=== PATIENT | female | born 1985 | race Caucasian/White ===

== ENCOUNTER → 2019-04-21 | Outpatient (CLI) | payer OTHER, MEDICAID ==
[~2019-04-21] MED LIST: CLON0.3T PO; HYDR12CA PO; MELA10CA2 PO; METH10CO PO; NICO21DI37 TD; NICO4GUM41; SERT-138 PO
[2019-04-21 15:47] LABS: HEMATOCRIT 35.7 % (36.0-47.0); HEMOGLOBIN 11.5 g/dl (12.0-15.5); MEAN CORPUSCULAR HEMOGLOBIN 28.9 pg (27.0-33.0); MEAN CORPUSCULAR HGB CONC 32.2 g/dl (32.0-36.5); MEAN CORPUSCULAR VOLUME 89.7 fl (80.0-96.0); PLATELET COUNT, AUTOMATED 144 10^3/uL (150-450); RED BLOOD COUNT 3.98 10^6/uL (4.00-5.40); WHITE BLOOD COUNT 4.1 10^3/uL (4.0-10.0)
[2019-04-21 16:21] LABS: ALT/SGPT 119 U/L (12-78); BILIRUBIN,TOTAL 0.3 MG/DL (0.2-1.0); BLOOD UREA NITROGEN 12 MG/DL (7-18); CALCIUM LEVEL 8.7 MG/DL (8.5-10.1); CARBON DIOXIDE LEVEL 32 MEQ/L (21-32); CHLORIDE LEVEL 106 MEQ/L (98-107); CREATININE FOR GFR 0.61 MG/DL (0.55-1.30); GLOMERULAR FILTRATION RATE > 60.0 (>60); GLUCOSE, FASTING 92 MG/DL (70-100); POTASSIUM SERUM 4.5 MEQ/L (3.5-5.1); SODIUM LEVEL 143 MEQ/L (136-145); TOTAL PROTEIN 6.3 GM/DL (6.4-8.2)
[2019-04-21 17:03] LABS: CHLAMYDIA DNA AMPLIFICATION NEGATIVE (NEGATIVE); GC DNA AMPLIFICATION NEGATIVE (NEGATIVE)
[2019-04-21 20:13] LABS: HCG, SERUM QUALITATIVE NEGATIVE (NEGATIVE)
--- NOTE | 2019-04-21 20:38 | ECGEPIP ---
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 No prior ECG available for comparison. Electronically Signed on 04-21-2019 20:38:09 EDT by Shaw Johnson
[2019-04-23 11:36] LABS: HEPATITIS B SURFACE ANTIGEN NEGATIVE (NEGATIVE)
[2019-04-23 12:05] LABS: HIV 1&2 SCREEN CENTAUR NEGATIVE (NEGATIVE)
[2019-04-23 12:40] LABS: HEPATITIS C VIRUS ABY INDEX > 11.0 INDEX (<0.8)
== END ==
LOC: M LAB 14:49 → EDBD 14:49
PROVIDERS: ATTEND Family Medicine
DX: F11.20 Opioid dependence, uncomplicated (principal)

== ENCOUNTER → 2019-04-28 | Outpatient (CLI) | payer OTHER ==
--- NOTE | 2019-04-28 18:15 | ECGEPIP ---
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 Could not rule out prior septal injury No significant change from 04/21/19 Electronically Signed on 04-28-2019 18:15:28 EDT by Errol Bobby
== END ==
LOC: M EKG 08:51
PROVIDERS: ATTEND Family Medicine
DX: F11.20 Opioid dependence, uncomplicated (principal)

== ENCOUNTER → 2019-04-30 | Outpatient (CLI) | payer OTHER ==
[2019-04-30 12:23] LABS: APPEARANCE, URINE CLEAR (CLEAR); BACTERIA, URINE AUTO NEGATIVE (NEGATIVE); BILIRUBIN, URINE AUTO NEGATIVE (NEGATIVE); BLOOD, URINE BLOOD NEGATIVE (NEGATIVE); COLOR, URINE YELLOW (YELLOW); GLUCOSE, URINE (UA) AUTO NEGATIVE (NEGATIVE); KETONE, URINE AUTO NEGATIVE (NEGATIVE); LEUKOCYTE ESTERASE, URINE AUTO TRACE (NEGATIVE); NITRITE, URINE AUTO NEGATIVE (NEGATIVE); PROTEIN, URINE AUTO NEGATIVE (NEGATIVE); RBC, URINE AUTO 1 /HPF (0-3); SPECIFIC GRAVITY URINE AUTO 1.017 (1.002-1.035); SQUAMOUS EPITHELIAL CELL UR AU 0 /HPF (0-6); UROBILINOGEN, URINE AUTO 0.2 mg/dL (0.0-2.0); WBC, URINE AUTO 0 /HPF (0-3)
[2019-04-30 12:49] LABS: BASO % 0.5 % (0.0-1.0); EOS # 0.2 10^3/uL (0.0-0.5); EOS % 5.7 % (0.0-3.0); HEMATOCRIT 38.5 % (36.0-47.0); HEMOGLOBIN 12.7 g/dl (12.0-15.5); LYMPH # 1.5 10^3/uL (1.5-5.0); LYMPH % 40.4 % (24.0-44.0); MEAN CORPUSCULAR HEMOGLOBIN 29.7 pg (27.0-33.0); MEAN CORPUSCULAR VOLUME 90.2 fl (80.0-96.0); MONO # 0.5 10^3/uL (0.0-0.8); MONO % 13.4 % (0.0-5.0); NEUTROPHILS # 1.5 10^3/uL (1.5-8.5); NEUTROPHILS % 39.7 % (36.0-66.0); PLATELET COUNT, AUTOMATED 128 10^3/uL (150-450); RED BLOOD COUNT 4.27 10^6/uL (4.00-5.40); WHITE BLOOD COUNT 3.7 10^3/uL (4.0-10.0)
[2019-04-30 13:43] LABS: ALBUMIN 3.4 GM/DL (3.2-5.2); ALT/SGPT 160 U/L (12-78); BILIRUBIN,TOTAL 0.3 MG/DL (0.2-1.0); BLOOD UREA NITROGEN 18 MG/DL (7-18); CALCIUM LEVEL 9.1 MG/DL (8.5-10.1); CARBON DIOXIDE LEVEL 29 MEQ/L (21-32); CHLORIDE LEVEL 103 MEQ/L (98-107); CREATININE FOR GFR 0.65 MG/DL (0.55-1.30); GLOMERULAR FILTRATION RATE > 60.0 (>60); GLUCOSE, FASTING 106 MG/DL (70-100); HEPATITIS B SURFACE ANTIBODY POSITIVE (POSITIVE); HEPATITIS B SURFACE ANTIGEN NEGATIVE (NEGATIVE); POTASSIUM SERUM 4.3 MEQ/L (3.5-5.1); SODIUM LEVEL 140 MEQ/L (136-145); TOTAL PROTEIN 6.6 GM/DL (6.4-8.2)
[2019-05-05 15:34] LABS: HEPATITIS A IgG TOTAL Negative (Negative); HEPATITIS C QUANTITATION 166090 IU/mL (.); HEPATITIS C VIRUS GENOTYPE 1a (.)
== END ==
LOC: M LAB 11:13
PROVIDERS: ATTEND Physician Assistant Medical
DX: Z02.2 Encounter for examination for admission to residential institution (principal); B18.2 Chronic viral hepatitis C; B16.9 Acute hepatitis B without delta-agent and without hepatic coma; B15.9 Hepatitis A without hepatic coma

== ENCOUNTER → 2019-05-31 | Outpatient (CLI) | payer OTHER ==
[2019-06-02 14:07] LABS: HEPATITIS C QUANTITATION HCV Not Detected IU/mL (.)
== END ==
LOC: M LAB 10:16
PROVIDERS: ATTEND Nurse Practitioner Adult Health
DX: B18.2 Chronic viral hepatitis C (principal)

== ENCOUNTER 2019-07-10 14:39 | Emergency (ER) | payer OTHER ==
[~2019-07-10] VITALS: Ht 170.2 cm; Wt 107.4 kg
[2019-07-10] MEDS ORDERED: HYDR12CA PO (15:07)
[2019-07-10] MEDS ORDERED: METH10CO PO ×2 (15:07)
[2019-07-10] MEDS ORDERED: CLON0.3T PO (15:07)
[2019-07-10] MEDS ORDERED: NICO21DI37 TD (15:07)
[2019-07-10] MEDS ORDERED: NICO4GUM41 (15:07)
[2019-07-10] MEDS ORDERED: MELA10CA2 PO (15:07)
[2019-07-10] MEDS ORDERED: SERT-138 PO (15:07)
[2019-07-10 15:42] LABS: APPEARANCE, URINE HAZY (CLEAR); BACTERIA, URINE AUTO NEGATIVE (NEGATIVE); BILIRUBIN, URINE AUTO NEGATIVE (NEGATIVE); BLOOD, URINE BLOOD NEGATIVE (NEGATIVE); COLOR, URINE YELLOW (YELLOW); GLUCOSE, URINE (UA) AUTO NEGATIVE (NEGATIVE); KETONE, URINE AUTO TRACE mg/dL (NEGATIVE); LEUKOCYTE ESTERASE, URINE AUTO 1+ (NEGATIVE); MUCUS, URINE SMALL (NEGATIVE); NITRITE, URINE AUTO NEGATIVE (NEGATIVE); PROTEIN, URINE AUTO NEGATIVE (NEGATIVE); RBC, URINE AUTO 2 /HPF (0-3); SPECIFIC GRAVITY URINE AUTO 1.026 (1.002-1.035); SQUAMOUS EPITHELIAL CELL UR AU 2 /HPF (0-6); UROBILINOGEN, URINE AUTO 0.2 mg/dL (0.0-2.0); WBC, URINE AUTO 7 /HPF (0-3)
[2019-07-10 15:46] LABS: BASO % 0.9 % (0.0-1.0); EOS # 0.2 10^3/uL (0.0-0.5); EOS % 5.3 % (0.0-3.0); HEMATOCRIT 37.5 % (36.0-47.0); HEMOGLOBIN 12.3 g/dl (12.0-15.5); LYMPH % 43.7 % (24.0-44.0); MEAN CORPUSCULAR HEMOGLOBIN 30.6 pg (27.0-33.0); MEAN CORPUSCULAR HGB CONC 32.8 g/dl (32.0-36.5); MEAN CORPUSCULAR VOLUME 93.3 fl (80.0-96.0); MONO # 0.3 10^3/uL (0.0-0.8); MONO % 6.2 % (0.0-5.0); NEUTROPHILS % 43.5 % (36.0-66.0); PLATELET COUNT, AUTOMATED 112 10^3/uL (150-450); RED BLOOD COUNT 4.02 10^6/uL (4.00-5.40); WHITE BLOOD COUNT 4.5 10^3/uL (4.0-10.0)
[2019-07-10 16:16] LABS: ALBUMIN 3.8 GM/DL (3.2-5.2); ALT/SGPT 57 U/L (12-78); BILIRUBIN,DIRECT < 0.1 MG/DL (0.0-0.2); BILIRUBIN,TOTAL 0.2 MG/DL (0.2-1.0); BLOOD UREA NITROGEN 26 MG/DL (7-18); CALCIUM LEVEL 8.9 MG/DL (8.5-10.1); CARBON DIOXIDE LEVEL 33 MEQ/L (21-32); CHLORIDE LEVEL 103 MEQ/L (98-107); CREATININE FOR GFR 1.43 MG/DL (0.55-1.30); GLOMERULAR FILTRATION RATE 44.7 (>60); GLUCOSE, FASTING 81 MG/DL (70-100); NT-PRO BNP 27 PG/ML (<125); POTASSIUM SERUM 4.1 MEQ/L (3.5-5.1); SODIUM LEVEL 141 MEQ/L (136-145); TOTAL PROTEIN 8.3 GM/DL (6.4-8.2)
[2019-07-10 19:06] VITALS: BP 148/88
--- NOTE | 2019-07-10 19:42 | REPVR ---
PROCEDURE INFORMATION: Exam: US Retroperitoneal Limited, Kidneys Exam date and time: 07/10/2019 6:55 PM Age: 33 years old Clinical history: Abnormal findings; Abnormal lab test; Abnormal kidney function lab tests; Additional info: Elevated CR, peripheral edema TECHNIQUE: Imaging protocol: Real-time ultrasound of the retroperitoneum with image documentation. Examination was focused on the kidneys. COMPARISON: No relevant prior studies available. FINDINGS: Right kidney: The right kidney measures 11.4 cm in length and there is no evidence of hydronephrosis. Left kidney: The left kidney measures 11.3 cm in length and there is no evidence of hydronephrosis. Bladder: Normal appearing urinary bladder. IMPRESSION: No evidence of hydronephrosis. Electronically signed by: Clyde Schneider On 07/10/2019 19:42:20 PM
--- NOTE | 2019-07-11 07:52 | REP ---
REASON: Edema. COMPARISON: No priors. FINDINGS: The superior mediastinal structures are midline. The cardiac silhouette is unremarkable in size, shape, and position. The diaphragmatic surfaces of the lungs are regular, and the costophrenic angles are clear. The pulmonary day are clear. The imaged osseous structures are intact. IMPRESSION: There is no acute cardiopulmonary disease. Electronically Signed by Bernardino Ann DO 07/11/2019 09:23 A
--- NOTE | 2019-07-11 07:58 | REP ---
DEEP VENOUS ULTRASONOGRAPHY BILATERAL THIGHS, RULE OUT DVT: REASON: Pain and swelling. TECHNIQUE: Multiple ultrasonographic images of the deep venous structures of the thigh were obtained from the common femoral vein to the popliteal vein along with Doppler interrogation and color flow Doppler images. FINDINGS: There is no abnormal echogenic material seen within any of the visualized deep venous structures that would suggest acute thrombosis. Coaptation is unremarkable throughout. Doppler interrogation shows an expected response to respiratory variability and augmentation. The color flow images show what appears to be a normal vascular pattern throughout. IMPRESSION: There is no ultrasonographic evidence of deep venous thrombosis involving any of the visualized deep venous structures of the bilateral thighs, as described above. Electronically Signed by Bernardino Ann DO 07/11/2019 09:24 A
== END 2019-07-10 19:07 | disposition home or self-care (01) ==
LOC: M ED 14:39
DX: R60.9 Edema, unspecified (principal); R79.89 Other specified abnormal findings of blood chemistry; E86.0 Dehydration; Z86.19 Personal history of other infectious and parasitic diseases; Z79.899 Other long term (current) drug therapy

== ENCOUNTER → 2019-07-12 | Outpatient (CLI) | payer OTHER ==
[2019-07-12 10:43] LABS: CALCIUM LEVEL 9.2 MG/DL (8.5-10.1); CREATININE FOR GFR 1.25 MG/DL (0.55-1.30); GLOMERULAR FILTRATION RATE 52.2 (>60)
== END ==
LOC: M LAB 09:34
PROVIDERS: ATTEND Physician Assistant Medical
DX: N17.9 Acute kidney failure, unspecified (principal)

== ENCOUNTER → 2019-07-23 | Outpatient (REF) | payer OTHER | LOC: M WHC 14:04 | PROVIDERS: ATTEND Obstetrics & Gynecology | DX: Z12.4 Encounter for screening for malignant neoplasm of cervix (principal) ==

== ENCOUNTER → 2019-07-26 | Outpatient (CLI) | payer OTHER, SELFPAY ==
[2019-07-26 10:42] LABS: HEMATOCRIT 37.1 % (36.0-47.0); HEMOGLOBIN 12.3 g/dl (12.0-15.5); MEAN CORPUSCULAR HEMOGLOBIN 30.8 pg (27.0-33.0); MEAN CORPUSCULAR HGB CONC 33.2 g/dl (32.0-36.5); MEAN CORPUSCULAR VOLUME 92.8 fl (80.0-96.0); PLATELET COUNT, AUTOMATED 115 10^3/uL (150-450); WHITE BLOOD COUNT 4.2 10^3/uL (4.0-10.0)
== END ==
LOC: M LAB 09:46
PROVIDERS: ATTEND Obstetrics & Gynecology
DX: N93.9 Abnormal uterine and vaginal bleeding, unspecified (principal)

== ENCOUNTER → 2019-07-26 | Outpatient (CLI) | payer MEDICAID, OTHER, SELFPAY ==
[2019-07-26 10:43] LABS: EOS # 0.2 10^3/uL (0.0-0.5); EOS % 5.3 % (0.0-3.0); HEMATOCRIT 38.3 % (36.0-47.0); HEMOGLOBIN 12.4 g/dl (12.0-15.5); LYMPH # 1.7 10^3/uL (1.5-5.0); LYMPH % 42.5 % (24.0-44.0); MEAN CORPUSCULAR HEMOGLOBIN 30.5 pg (27.0-33.0); MEAN CORPUSCULAR HGB CONC 32.4 g/dl (32.0-36.5); MEAN CORPUSCULAR VOLUME 94.3 fl (80.0-96.0); MONO # 0.3 10^3/uL (0.0-0.8); NEUTROPHILS # 1.8 10^3/uL (1.5-8.5); NEUTROPHILS % 43.9 % (36.0-66.0); PLATELET COUNT, AUTOMATED 123 10^3/uL (150-450); RED BLOOD COUNT 4.06 10^6/uL (4.00-5.40)
[2019-07-26 11:46] LABS: CALCIUM LEVEL 8.6 MG/DL (8.5-10.1); CREATININE FOR GFR 1.31 MG/DL (0.55-1.30); FREE T4 0.24 NG/DL (0.76-1.46); GLOMERULAR FILTRATION RATE 49.5 (>60); POTASSIUM SERUM 4.1 MEQ/L (3.5-5.1); THYROID STIMULATING HORMONE 87.6 uIU/ML (0.358-3.740)
== END ==
LOC: M LAB 09:47
PROVIDERS: ATTEND Physician Assistant Medical
DX: R53.83 Other fatigue (principal); I10 Essential (primary) hypertension

== ENCOUNTER → 2019-08-05 | Outpatient (CLI) | payer SELFPAY ==
--- NOTE | 2019-08-05 15:24 | REP ---
PELVIC ULTRASOUND: Real-time sonographic evaluation of the pelvis is performed utilizing transabdominal and endovaginal technique. The bladder measures 7.8 x 8.1 x 4.8 cm. Uterus measures 7.4 x 3.3 x 4.3 cm. Endometrial thickness is 5 mm. Right ovary measures 2.3 x 1.4 x 2.0 cm and left ovary 2.2 x 1.6 x 1.2 cm. There is a dominant follicle of the left ovary 1.4 cm in diameter. There is no other evidence of adnexal mass or free fluid. There is no evidence of ovarian torsion with duplex Doppler evaluation. IMPRESSION: Dominant follicle left ovary 1.4 cm in diameter. No other evidence of adnexal mass. No free fluid or torsion. Electronically Signed by Jorge Luis Alejo MD 08/06/2019 04:35 P
== END ==
LOC: M RAD 13:43
PROVIDERS: ATTEND Obstetrics & Gynecology
DX: N80.9 Endometriosis, unspecified (principal); N83.02 Follicular cyst of left ovary

== ENCOUNTER → 2019-08-30 | Outpatient (REF) | payer MEDICAID | LOC: M SFHCWAGY 13:10 | PROVIDERS: ATTEND Obstetrics & Gynecology | DX: N93.9 Abnormal uterine and vaginal bleeding, unspecified (principal) ==

== ENCOUNTER → 2019-08-31 | Outpatient (CLI) | payer MEDICAID ==
[~2019-08-31] MED LIST changes: +LEVO175T2 PO; +[UNRECOGNIZED DRUG - CODE] PO
--- NOTE | 2019-08-31 21:21 | ECGEPIP ---
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
== END ==
LOC: M EKG 10:20
PROVIDERS: ATTEND Family Medicine
DX: R00.1 Bradycardia, unspecified (principal); F11.20 Opioid dependence, uncomplicated

== ENCOUNTER 2019-09-10 11:33 | Emergency (ER) | payer MEDICAID, OTHER ==
[~2019-09-10] VITALS: Ht 170.2 cm; Wt 106.8 kg
[2019-09-10 11:33] VITALS: BP 126/72
[~2019-09-10 11:33] MED LIST changes: -LEVO175T2 PO; -[UNRECOGNIZED DRUG - CODE] PO
[2019-09-10] MEDS ORDERED: LEVO175T2 PO (11:42)
[2019-09-10] MEDS ORDERED: [UNRECOGNIZED DRUG - CODE] PO (11:42)
[2019-09-10] MEDS ORDERED: ACETAMINOPHEN 500 MG TAB PO ONE (12:00)
[2019-09-10] MEDS ORDERED: IBUPROFEN 600 MG TAB PO ONE (12:00)
--- NOTE | 2019-09-10 12:36 | REP ---
Lumbar spine five views: There are no comparisons. The vertebral body heights, interspacing alignment are normal. The pedicles and facets are unremarkable. There is no spondylolysis or spondylolisthesis. The sacroiliac articulations are unremarkable. Mineralization is normal. Impression: Negative lumbar spine. Electronically Signed by Jorge Luis Kern MD 09/10/2019 12:27 P
--- NOTE | 2019-09-10 12:38 | REP ---
Sacrum and coccyx three views: No sacral fracture is identified. The sacral ala and foramen are unremarkable. Mineralization is normal. The sacroiliac articulations are unremarkable. Impression: Negative sacrum and coccyx. Electronically Signed by Jorge Luis Kern MD 09/10/2019 12:28 P
== END 2019-09-10 12:50 | disposition home or self-care (01) ==
LOC: M ED 11:33
DX: S30.0XXA Contusion of lower back and pelvis, initial encounter (principal); W00.9XXA Unspecified fall due to ice and snow, initial encounter; Y92.099 Unspecified place in other non-institutional residence as the place of occurrence of the external cause; Y93.9 Activity, unspecified; Y99.9 Unspecified external cause status; E03.9 Hypothyroidism, unspecified; Z79.899 Other long term (current) drug therapy

== ENCOUNTER → 2019-09-14 | Outpatient (CLI) | payer MEDICAID ==
[~2019-09-14] MED LIST changes: +LEVO175T2 PO; +[UNRECOGNIZED DRUG - CODE] PO
[2019-09-14 15:16] LABS: FREE T4 1.16 NG/DL (0.76-1.46); THYROID STIMULATING HORMONE 0.242 uIU/ML (0.358-3.740)
== END ==
LOC: M LAB 13:41
PROVIDERS: ATTEND Internal Medicine Endocrinology, Diabetes & Metabolism
DX: E03.9 Hypothyroidism, unspecified (principal)

== ENCOUNTER → 2019-09-21 | Outpatient (CLI) | payer MEDICAID ==
--- NOTE | 2019-09-21 12:47 | REPMRS ---
Patient History The patient states she had a clinical breast exam in February 2019 Family history of breast cancer at age 42 in mother, breast cancer in maternal grandmother. Taking unspecified hormones for 2 months. Digital Mammo Diagnostic Bilateral: September 21, 2019 - Exam #: [id number] Bilateral CC and MLO view(s) were taken. Technologist: Stormy Oconnor Technologist FINDINGS: There are scattered fibroglandular densities. Metallic nipple rings are noted bilaterally. These apparently could not be removed. There is no evidence of dominant mass, architectural distortion, or grouped microcalcification typical of malignancy. 3-D tomosynthesis shows no additional findings. Assessment: BI-RADS/ACR category 2 mammogram. Benign Findings. Recommendation Breast MRI of both breasts in 6 months. Routine screening mammogram of both breasts in 1 year (for women over age 40). This patient's Lifetime Breast Cancer RIsk is estimated at 30.9 %. Annual screening Breast MRI scanniing is recommended for patient's whose lifetime risk assessment is over 20%. This mammogram was interpreted with the aid of an FDA-approved computer-aided dectection system. Electronically Signed By: Ab Gallegos MD 09/21/19 [id number]
== END ==
LOC: M RAD 12:06
PROVIDERS: ATTEND Nurse Practitioner Family
DX: N64.4 Mastodynia (principal); N64.52 Nipple discharge; Z80.3 Family history of malignant neoplasm of breast
CPT/HCPCS: 77066; G0279

== ENCOUNTER → 2019-10-04 | Outpatient (CLI) | payer MEDICAID ==
[2019-10-06 14:12] LABS: HEPATITIS C QUANTITATION HCV Not Detected IU/mL (.)
== END ==
LOC: M LAB 12:27
PROVIDERS: ATTEND Nurse Practitioner Adult Health
DX: B18.2 Chronic viral hepatitis C (principal)

== ENCOUNTER → 2019-10-19 | Outpatient (CLI) | payer MEDICAID ==
[~2019-10-19] MED LIST changes: +EQL50TAB2 PO; +WELL200T PO
== END ==
LOC: M LAB 12:11
PROVIDERS: ATTEND Family Medicine
DX: F11.10 Opioid abuse, uncomplicated (principal)

== ENCOUNTER → 2019-10-20 | Outpatient (CLI) | payer MEDICAID | LOC: M LAB 08:53 | PROVIDERS: ATTEND Family Medicine | DX: F11.10 Opioid abuse, uncomplicated (principal) ==

== ENCOUNTER 2019-10-27 08:51 | Inpatient (IN) | payer MEDICAID ==
[~2019-10-27] VITALS: Ht 170.2 cm; Wt 111.6 kg
[2019-10-27] VITALS (7 sets, daily range): BP systolic 136–153; BP diastolic 84–89
[~2019-10-27 08:51] MED LIST changes: +LR 1,000 ML IV SCH; +ceFAZolin SOD 2 GM in IV 1 EA IV ONE
[2019-10-27 09:25] LABS: HEMATOCRIT 39.2 % (36.0-47.0); MEAN CORPUSCULAR HEMOGLOBIN 28.9 pg (27.0-33.0); MEAN CORPUSCULAR HGB CONC 33.2 g/dl (32.0-36.5); MEAN CORPUSCULAR VOLUME 87.1 fl (80.0-96.0); PLATELET COUNT, AUTOMATED 120 10^3/uL (150-450); WHITE BLOOD COUNT 3.9 10^3/uL (4.0-10.0)
[2019-10-27] MEDS ORDERED: LIOT25TA8 PO (09:26)
[2019-10-27] MEDS ORDERED: VITA80003 PO (09:26)
[2019-10-27 09:57] LABS: HCG, SERUM QUALITATIVE NEGATIVE (NEGATIVE)
[2019-10-27] MEDS ORDERED: BUPIVACAINE HCL 0.25% 30ML VIAL As Ordered ONE (10:49)
[2019-10-27] MEDS ORDERED: METHYLENE BLUE 0.5% (5MG/ML) 10 ML AMP (PROVAYBLUE)(Q9968 PER 1MG) As Ordered ONE (10:50)
[2019-10-27] MEDS ORDERED: dexameTHASONE 4 MG/ML 1ML VIAL (J1100 PER 1MG) As Ordered ONE ×2 (11:48→11:54)
[2019-10-27] MEDS ORDERED: fentaNYL 250 MCG/5 ML INJECTION (J3010) As Ordered ONE (11:48)
[2019-10-27] MEDS ORDERED: KETOROLAC 60 MG/2 ML VIAL (J1885) As Ordered ONE ×2 (11:48→11:54)
[2019-10-27] MEDS ORDERED: LIDOCAINE 2% INJ 100 MG/5 ML SDV (FOR ANES.) As Ordered ONE ×2 (11:48→11:53)
[2019-10-27] MEDS ORDERED: MIDAZOLAM INJ 2 MG/2 ML VIAL (J2250) As Ordered ONE (11:48)
[2019-10-27] MEDS ORDERED: propofoL 200 MG/20 ML VIAL As Ordered ONE ×5 (11:48→13:54)
[2019-10-27] MEDS ORDERED: ROCURONIUM BROMIDE 50 MG/5 ML VIAL As Ordered ONE ×3 (11:48→13:04)
[2019-10-27] MEDS ORDERED: SUGAMMADEX SODIUM 500 MG/5 ML VIAL (BRIDION) As Ordered ONE ×2 (11:48→11:53)
[2019-10-27] MEDS ORDERED: ONDANSETRON 4MG/2ML VIAL (J2405) As Ordered ONE ×2 (11:48→11:54)
[2019-10-27] MEDS ORDERED: METOCLOPRAMIDE INJ 10MG/2ML VIAL (J2765) As Ordered ONE ×2 (11:48→11:54)
[2019-10-27] MEDS ORDERED: HYDROmorphone HCL 2 MG/ML 1ML VIAL (J1170) As Ordered ONE (12:01)
[2019-10-27] MEDS ORDERED: ACETAMINOPHEN 1000MG 100ML IV BTL (OFIRMEV) (J0131 PER 10MG) As Ordered ONE (12:02)
[2019-10-27] MEDS ORDERED: LABETALOL HCL 100 MG/20 ML VIAL As Ordered ONE (12:07)
[2019-10-27] MEDS ORDERED: hydrALAZINE INJ 20 MG/ML VIAL As Ordered ONE (12:30)
[2019-10-27] MEDS ORDERED: ePHEDrine SULFATE 25 MG/5 ML(5MG/ML) SYRINGE As Ordered ONE (13:01)
[2019-10-27] MEDS ORDERED: PROMETHAZINE INJ 25 MG/ML VIAL (J2550) IV PRN (14:15)
[2019-10-27] MEDS ORDERED: NICOTINE POLACRILEX 2 MG GUM PO PRN (14:15)
[2019-10-27] MEDS ORDERED: PERCOCET 5MG/325MG TAB PO PRN (14:15)
[2019-10-27] MEDS ORDERED: ONDANSETRON 4 MG TAB (S0181) PO PRN (14:15)
[2019-10-27] MEDS ORDERED: fentaNYL 100 MCG/2 ML INJECTION (J3010) As Ordered ONE (14:28)
[2019-10-27] MEDS: fentaNYL 100 MCG/2 ML INJECTION (J3010) IV PRN ×2 (14:32→15:02)
[2019-10-27] MEDS ORDERED: oxyCODONE 5MG TAB PO PRN (14:45)
[2019-10-27] MEDS ORDERED: ONDANSETRON 4MG/2ML VIAL (J2405) IV PRN (14:45)
[2019-10-27] MEDS ORDERED: LR 1,000 ML IV SCH (14:45)
[2019-10-27] MEDS: NICOTINE 21MG/24HR 1 EA TRANSDERMAL TD SCH (16:46)
[2019-10-27] MEDS: LR 1,000 ML IV SCH ×2 (16:46→23:40)
[2019-10-27] MEDS: PERCOCET 5MG/325MG TAB PO PRN ×2 (18:59→23:42)
[2019-10-27] MEDS: DOCUSATE SODIUM 100 MG CAP PO SCH (20:13)
[2019-10-27] MEDS: KETOROLAC 30 MG/ML VIAL (J1885) IV SCH (20:13)
[2019-10-28 02:00] VITALS: BP 150/82
[2019-10-28] MEDS: KETOROLAC 30 MG/ML VIAL (J1885) IV SCH ×3 (02:08→13:32)
[2019-10-28] MEDS: LEVOTHYROXINE 150MCG TABLET (0.15MG) PO SCH (05:46)
[2019-10-28] MEDS: LR 1,000 ML IV SCH ×3 (05:46→21:51)
[2019-10-28] MEDS: LEVOTHYROXINE 25MCG TABLET (0.025MG) PO SCH (05:46)
[2019-10-28] MEDS: PERCOCET 5MG/325MG TAB PO PRN ×4 (05:53→21:12)
[2019-10-28 06:00] VITALS: BP 147/84
[2019-10-28 06:03] LABS: BASO % 0.2 % (0.0-1.0); EOS # 0.1 10^3/uL (0.0-0.5); HEMATOCRIT 34.8 % (36.0-47.0); HEMOGLOBIN 11.5 g/dl (12.0-15.5); LYMPH # 1.5 10^3/uL (1.5-5.0); LYMPH % 30.8 % (24.0-44.0); MEAN CORPUSCULAR VOLUME 87.9 fl (80.0-96.0); MONO # 0.6 10^3/uL (0.0-0.8); MONO % 12.8 % (0.0-5.0); NEUTROPHILS # 2.7 10^3/uL (1.5-8.5); PLATELET COUNT, AUTOMATED 111 10^3/uL (150-450); RED BLOOD COUNT 3.96 10^6/uL (4.00-5.40); WHITE BLOOD COUNT 4.9 10^3/uL (4.0-10.0)
[2019-10-28] MEDS: cloNIDine 0.2 MG TAB PO SCH (08:45)
[2019-10-28] MEDS: NICOTINE 21MG/24HR 1 EA TRANSDERMAL TD SCH (08:46)
[2019-10-28] MEDS: DOCUSATE SODIUM 100 MG CAP PO SCH ×2 (08:46→21:12)
[2019-10-28] MEDS: METHADONE 10 MG TAB (S0109) PO SCH (08:47)
[2019-10-28 14:00] VITALS: BP 135/68
[2019-10-28] MEDS: IBUPROFEN 800 MG TAB PO SCH (21:51)
[2019-10-28 22:00] VITALS: BP 148/82
[2019-10-29 02:00] VITALS: BP 139/77
[2019-10-29] MEDS: PERCOCET 5MG/325MG TAB PO PRN ×3 (03:04→13:54)
[2019-10-29] MEDS: LEVOTHYROXINE 150MCG TABLET (0.15MG) PO SCH (05:59)
[2019-10-29] MEDS: LEVOTHYROXINE 25MCG TABLET (0.025MG) PO SCH (05:59)
[2019-10-29] MEDS: IBUPROFEN 800 MG TAB PO SCH ×2 (05:59→13:54)
[2019-10-29 06:00] VITALS: BP 143/90
[2019-10-29 08:40] VITALS: BP 143/90
[2019-10-29] MEDS: DOCUSATE SODIUM 100 MG CAP PO SCH (08:40)
[2019-10-29] MEDS: cloNIDine 0.2 MG TAB PO SCH (08:40)
[2019-10-29] MEDS: NICOTINE 21MG/24HR 1 EA TRANSDERMAL TD SCH (08:41)
[2019-10-29] MEDS: METHADONE 10 MG TAB (S0109) PO SCH (08:41)
[2019-10-29 14:00] VITALS: BP 148/77
[2019-10-29] MEDS ORDERED: OXYC1TAB23 PO (14:06)
[2019-10-29] MEDS ORDERED: IBUP-1022 PO (14:07)
--- NOTE | 2019-11-24 10:07 | DSES ---
DATE OF ADMISSION: 10/28/2019 DATE OF DISCHARGE: 10/29/2019 33-year-old female with history of chronic pain and abnormal uterine bleeding presents for definitive treatment. HOSPITAL COURSE: The patient was admitted on 10/28/2019 for surgery. She underwent a robotic-assisted laparoscopic hysterectomy and bilateral salpingectomy by Dr. Maninder Cramer. The procedure was without complication. Her postoperative course was unremarkable. She had adequate return of bladder and bowel function. Her postop hemoglobin was 11.5 gm/dL. She had pain control issues due to her history of chronic drug abuse. She is deemed stable for discharge on postoperative day #2. ADMISSION DIAGNOSES: Pelvic pain. Abnormal uterine bleeding. DISCHARGE DIAGNOSES: Pelvic pain. Abnormal uterine bleeding. PROCEDURE: Robotic assisted laparoscopic hysterectomy and bilateral salpingectomy. DISPOSITION: Patient will followup with Dr. Cramer in 2 weeks. Instructions were reviewed.
== END 2019-10-29 17:30 | disposition home or self-care (01) | DRG 513 ==
LOC: M SDC 08:51 → M MSPAV 16:34 → M SDC 10-28 16:26 → M MSPAV 10-28 16:27 → M SDC 10-29 17:30 → M MSPAV 10-29 17:30
PROVIDERS: ADMIT Obstetrics & Gynecology; ATTEND Obstetrics & Gynecology
PROC: 8E0W4CZ Robotic Assisted Procedure of Trunk Region, Percutaneous Endoscopic Approach (ICD-10-PCS; 2019-10-27)
PROC: 0UTC4ZZ Resection of Cervix, Percutaneous Endoscopic Approach (ICD-10-PCS; 2019-10-27)
PROC: 0UT74ZZ Resection of Bilateral Fallopian Tubes, Percutaneous Endoscopic Approach (ICD-10-PCS; 2019-10-27)
PROC: 0UT94ZZ Resection of Uterus, Percutaneous Endoscopic Approach (ICD-10-PCS; principal; 2019-10-27 10:45)
DX: N72 Inflammatory disease of cervix uteri (principal); N32.89 Other specified disorders of bladder; N99.4 Postprocedural pelvic peritoneal adhesions; N93.9 Abnormal uterine and vaginal bleeding, unspecified; R10.2 Pelvic and perineal pain; E03.9 Hypothyroidism, unspecified; K58.1 Irritable bowel syndrome with constipation; F41.9 Anxiety disorder, unspecified; F32.9 Major depressive disorder, single episode, unspecified; B19.20 Unspecified viral hepatitis C without hepatic coma; Z79.899 Other long term (current) drug therapy; F12.11 Cannabis abuse, in remission; F11.21 Opioid dependence, in remission; Z87.891 Personal history of nicotine dependence

== ENCOUNTER → 2019-11-12 | Outpatient (CLI) | payer MEDICAID ==
[~2019-11-12] MED LIST changes: +IBUP-1022 PO; +LIOT25TA8 PO; -LR 1,000 ML IV SCH; +OXYC1TAB23 PO; +VITA80003 PO; -ceFAZolin SOD 2 GM in IV 1 EA IV ONE
--- NOTE | 2019-11-26 02:06 | ECWPNPC ---
PATIENT NAME: LORNA SIMONS : 1985 GENDER: FEMALE VISIT DATE: 11/12/2019 DISCHARGE DATE: 11/12/19 1436 VISIT LOCKED DATE TIME: PHYSICIAN: ARAM JESSICA MD RESOURCE: ARAM JESSICA MD REASON FOR APPOINTMENT 1. NECK/BACK HISTORY OF PRESENT ILLNESS NEW PATIENT CONSULT: WHEN DID YOUR PAIN FIRST START? . BRIEFLY DESCRIBE HOW YOUR PAIN STARTED? . HOW DOES YOUR PAIN CHANGE WITH TIME? . DOES YOUR PAIN AWAKEN YOU FROM SLEEP? . HOW MANY HOURS OF SLEEP DO YOU NORMALLY GET? . ANY DIAGNOSTIC TESTING? . FACILITY WHERE TESTS WERE DONE? ____. PAIN TREATMENT TREATMENT YES CANCER HAVE YOU EVER HAD ANY TYPE OF CANCER?NO NO. 33 YEAR OLD FEMALE PATIENT WITH A HISTORY OF LOW BACK AND NECK PAIN. THE PATIENT DESCRIBES THE PAIN BURNING, HAVE IT ALL THE TIME, SHARP, STABBING, AND TENDER WITH A PAIN SCORE OF 6-10/10 DEPENDING ON PHYSICAL ACTIVITY. THE PATIENT STATES SHE HAS BEEN SUFFERING FROM HER PAIN FOR MANY YEARS, BUT APPROXIMATELY ONE MONTH AGO SHE BEGAN EXPERIENCING NEW PAIN IN HER LOWER BACK THAT RADIATED DOWN HER LEFT HIP AND LEG. THE PATIENT SAYS HER PAIN IS AFFECTING HER ABILITY TO PERFORM HER DAILY ACTIVITIES SUCH WALKING AROUND, GROCERY SHOPPING, AND CLEANING HER HOUSE. PATIENT DENIES UNEXPLAINABLE WEIGHT LOSS, FEVER, CHILLS, NEW CHANGES ON HER URINARY OR BOWEL CONTROL. PAIN SCREENING: PATIENT HAS A COMPLAINT OF ACUTE OR CHRONIC PAIN :YES FALL RISK SCREENING: SCREENING : NO FALLS IN THE PAST YEAR. GRANADO INVENTORY: QUESTIONNAIRE ASSESSEDTBD SCORE VALUE CALCULATED TBD CURRENT MEDICATIONS TAKING MELATONIN 10 MG CAPSULE DIRECTED ORALLY EVERY NIGHT TAKING METHADONE HCL INTENSOL 10 MG/ML CONCENTRATE 160MG ORALLY EVERY MORNING TAKING LEVOTHYROXINE SODIUM 175 MCG TABLET 1 TABLET IN THE MORNING ON AN EMPTY STOMACH ORALLY ONCE A DAY TAKING NICOTINE 21 MG/24HR PATCH 24 HOUR 1 PATCH TO SKIN TRANSDERMAL ONCE A DAY TAKING NICORETTE 2 MG GUM 1 PIECE FOR 30 MINUTE NEEDED MOUTH/THROAT 24 TIME(S) A DAY TAKING WELLBUTRIN SR 200 MG TABLET EXTENDED RELEASE 12 HOUR 1 TABLET IN THE MORNING ORALLY TWICE A DAY TAKING CLONIDINE HCL 0.2 MG TABLET 1 TABLET ORALLY ONCE A DAY TAKING CLONIDINE HCL 0.3 MG TABLET 1 TABLET ORALLY ONCE A DAY TAKING VITAMIN A 8000 UNIT CAPSULE 1 CAPSULE ORALLY ONCE A DAY TAKING LIOTHYRONINE SODIUM 25 MCG TABLET 1 TABLET ON AN EMPTY STOMACH ORALLY ONCE A DAY NOT-TAKING CLONIDINE HCL ER 0.1 MG TABLET EXTENDED RELEASE 12 HOUR 0.4MG TABLET AT BEDTIME ORALLY ONCE A DAY NOT-TAKING WELLBUTRIN SR 200 MG TABLET EXTENDED RELEASE 12 HOUR 1 TABLET IN THE MORNING ORALLY BID NOT-TAKING PERCOCET 5-325 MG TABLET 1 TABLET NEEDED ORALLY EVERY 6 HRS NOT-TAKING SERTRALINE HCL 100 MG TABLET 1 TABLET ORALLY ONCE A DAY MEDICATION LIST REVIEWED AND RECONCILED WITH THE PATIENT PAST MEDICAL HISTORY ? ENDOMETRIOSIS OR PCOS HEPATITIS C (STATES HAS BEEN TREATED) PAST HEROIN ADDICTION- LAST USED 12/11/18 (LIVES IN [facility]) HYPOTHYROIDISM CHRONIC NECK PAIN CHRONIC LOW BACK PAIN DEGENERATIVE DISC DISEASE ALLERGIES N.K.D.A. SURGICAL HISTORY 2010 WITH TUBAL LIGATION 2012 OPERATIVE LAPAROSCOPY (ENDOMETRIOSIS) 2009 HYSTERECTOMY 10/2019 FAMILY HISTORY FATHER: ALIVE 55 YRS, MANIC DEPRESSIVE DISORDER, SCHITZOPHRENIC MOTHER: , DIABETES, HYPERTENSION, HIGH CHOLESTEROL, THYROID DISEASE, KIDNEY DISEASE BREAST LUMP AGE 41 SEPSIS AFTER GASTRIC BYPASS SON(S): ALIVE MATERNAL GRAND MOTHER: STOMACH SCLERODERMA, BREAST CANCER, HEART DISEASE 2 SON(S) - HEALTHY. SOCIAL HISTORY GENERAL: TOBACCO USE ARE YOU A:FORMER SMOKER HOW LONG HAS IT BEEN SINCE YOU LAST SMOKED?6-12 MONTHS VAPORNO E-CIGARETTENO OTHERS AT HOME: CURRENTLY AT [facility]. HOUSING: [facility]. EDUCATION LEVEL OF EDUCATION:SCRAP DEALER'S DEGREE IN LIBERAL ARTS AND PSYCHOLOGY DIET: REGULAR. LANGUAGE LANGUAGES SPOKEN:PORTUGUESE DOMESTIC VIOLENCE DO YOU FEEL SAFE IN YOUR ENVIRONMENT?YES NEW PATIENT PAIN DIARY PATIENT DESCRIBES PAIN :BURNING, HAVE IT ALL THE TIME, SHARP, STABBING, TENDER FROM 0-10, WHAT LEVEL IS YOUR PAIN TODAY?7 PRECIPITATING FACTORS BENDING, STANDING FOR A LONG TIME, LYING DOWN ALLEVIATING FACTORS PROPPING BACK OF LEG UP WITH A PILLOW, LYING ON RIGHT SIDE WITH HEAD PROPPRED UP IMPACT ON FUNCTION DIFFICULT TO STAND TO DO DISHES, UNLOAD FRUIT BAR MAKER, OR DO LAUNDRY IS THERE A CHANCE YOU COULD BE ?NO HAVE YOU BEEN SICK IN THE LAST WEEK (COLD, COUGH, FEVER, FLU, ETC)NO DO YOU TAKE ANY BLOOD THINNERS?NO DO YOU HAVE ANY RASHES OR OPEN SORES?YES HEALING INCISIONS POST HYSTERECTOMY ANY CHANGE IN BOWEL OR BLADDER CONTROL?NO ARE YOU ALLERGIC TO SHELLFISH OR IV DYE?NO ARE YOU DIABETIC?NO DO YOU HAVE A PACEMAKER OR DEFIBRILLATOR?NO ANY NEW PROBLEMS WITH MEDICINES OR NEW ALLERGIESNO ANY NEW PATTERNS OF PAIN OR NUMBNESS?YES GRADUALLY PAIN HAS WORSENED HAVE YOU FALLEN IN THE LAST 6 MONTHS?NO DO YOU USE ANY TYPE OF TOBACCO (SMOKE, SMOKELESS, CHEW, ETC.)YES ONLY NICOTINE PATCH AND GUM ARE YOU ABUSED, NEGLECTED, OR IN AN UNSAFE ENVIRONMENT?NO DO YOU HAVE THOUGHTS OF HURTING YOURSELF OR SOMEONE ELSE?NO DO YOU NEED ANY PRESCRIPTIONS? UNSURE DO YOU HAVE ANY OTHER QUESTIONS OR CONCERNS?YES INTENSITY SCALE REVIEWEDNUMBER RECREATIONAL DRUG USE DRUG USE?YES HOW OFTEN AND HOW MUCH? HEROIN ADDICT, CURRENTLY IN [facility], LAST USED 12/11/18 MARIJUANA - LAST SMOKED 03/23/19 EXERCISE: WALKS OCCASIONALLY. PATIENT: ____. LEARNING BARRIERS / SPECIAL NEEDS CHANGE FROM LAST VISIT?NO BARRIERS TO LEARNING?NO HEARING IMPAIRED?NO VISION IMPAIRED?YES COGNITIVELY IMPAIRED?NO :CORRECTIVE LENSES READINESS TO LEARN?YES LEARNING PREFERENCES?NO LEARNING CAPABILITIES PRESENT?YES EMOTIONAL BARRIERS?NO SPECIAL DEVICES?NO BUNDLES HANGER NEEDED?NO PAIN CLINIC PFS, CLERGY, PUBLIC HEALTH REFERRALS PFS REFERRAL NEEDED?NO CLERGY REFERRAL NEEDED?NO PUBLIC HEALTH REFERRAL NEEDED?NO HAS THE PATIENT BEEN EDUCATED REGARDING HIS/HER PLAN OF CARE?YES HAS THE PATIENT BEEN EDUCATED REGARDING PAIN, THE RISK FOR PAIN, THE IMPORTANCE OF EFFECTIVE PAIN MANAGEMENT, AND THE PAIN ASSESSMENT PROCESS?YES CLERGY REFERRAL NEEDED?NO WAS THE PROVIDER NOTIFIED OF ANY PERTINENT INFO?NO PFS REFERRAL NEEDED?NO PUBLIC HEALTH REFERRAL NEEDED?NO LATEX QUESTIONNAIRE LATEX ALLERGY : HAVE YOU EVER DEVELOPED ANY TYPE OF REACTION AFTER HANDLING LATEX PRODUCTS SUCH RUBBER GLOVES, CONDOMS, DIAPHRAGMS, BALLOONS, SOCKS, OR UNDERWEAR?NO LATEX ALLERGY : HAVE YOU EVER DEVELOPED ANY TYPE OF REACTION DURING OR AFTER DENTAL APPOINTMENT, VAGINAL/RECTAL EXAMINATION, SURGICAL PROCEDURE, OR ANY OTHER EXPOSURE?NO LATEX RISK : HAVE YOU EVER HAD ANY DIFFICULTY BREATHING OR HIVES AFTER EATING OR HANDLING ANY FRUITS, OR VEGETABLES; SUCH KIWI, BANANAS, STONE FRUITS, OR CHESTNUTSNO LATEX RISK : DO YOU HAVE A PREVIOUS PERSONAL HISTORY OF MORE THAN NINE SURGERIES, SPINA BIFIDA, OR REPEATED CATHERIZATIONS? NO LATEX RISK : ARE YOU FREQUENTLY EXPOSED TO LATEX PRODUCTS IN YOUR OCCUPATION?NO DATE ASKED : 11/04/2019 CAFFEINE CAFFEINE USE?YES HOW OFTEN AND HOW MUCH? 1 CUP/ DAY ADVANCE DIRECTIVE ADVANCE DIRECTIVE DISCUSSED WITH PATIENT:YES INFORMATION OFFERED AND DECLINED CAODAISM [id number] NONE MARITAL STATUS: SINGLE. ALCOHOL SCREENING DID YOU HAVE A DRINK CONTAINING ALCOHOL IN THE PAST YEAR?NO POINTS0 INTERPRETATIONNEGATIVE OCCUPATION: UNEMPLOYED - STAY AT HOME MOM. SEXUAL HX HAD SEX IN THE LAST 12 MONTHS (VAGINAL, ORAL, OR ANAL)?NO HAVE YOU EVER HAD AN STD?NO HOSPITALIZATION/MAJOR DIAGNOSTIC PROCEDURE CHILDBIRTH REVIEW OF SYSTEMS REVIEWED BY: PROVIDER: ARAM JESSICA MD . CONSTITUTIONAL: ANY CHANGE IN YOUR MEDICAL CONDITION? NO . CHILLS NO . FEVER NO . INFECTION: DO YOU HAVE NEW INFECTIONS? NO . DO YOU HAVE HISTORY OF MRSA? NO . MUSCULOSKELETAL: ANY NEW PATTERNS OF PAIN OR NUMBNESS? WORSE, YES . SYTEMIC LUPUS NO . GASTROENTEROLOGY: ANY NEW CHANGE IN BOWEL CONTROL? NO . BARRETTS ESOPHAGUS NO . CIRRHOSIS NO . HEPATITIS YES . LIVER FAILURE NO . ACID REFLUX NO . UNEXPLAINED WEIGHT LOSS NO . GENITOURINARY: ANY NEW CHANGE IN BLADDER CONTROL? NO . IS THERE A CHANCE YOU COULD BE ? NO . HEMATOLOGY/LYMPH: DO YOU TAKE ANY BLOOD THINNERS? (FOR EXAMPLE- COUMADIN, PLAVIX, AGGRENOX, PLATEL, PRADAXA, OR XARELTO) NO . WHEN WAS YOUR LAST DOSE? DATE: TIME: . LOW PLATELET COUNT NO . SICKLE CELL DISEASE NO . VON WILLIEBRANDS NO . FACTOR V LEIDEN NO . THALLASEMIA NO . ANEMIA NO . EASY BRUISING NO . NEUROLOGY: HAVE YOU FALLEN IN THE PAST 12 MONTHS? NO . ANY NEW EXTREMITY NUMBNESS OR WEAKNESS? YES - LEFT UPPER LEG NUMBNESS AND BURNING . HEAD INJURY NO . DEMENTIA NO . CEREBRAL PALSY NO . MULTIPLE SCLEROSIS NO . DIZZINESS NO . HEADACHE NO . STROKES NO . VERTIGO NO . CARDIOLOGY: DO YOU HAVE A PACEMAKER OR DEFIBRILLATOR? NO . ANGINA NO . HEART ATTACK NO . HEART SURGERY NO . CONGESTIVE HEART FAILURE/FLUID OVERLOAD NO . CHEST PAIN NO . HIGH BLOOD PRESSURE NO . IRREGULAR HEART BEAT NO . RESPIRATORY: HAVE YOU BEEN SICK IN THE PAST WEEK? NO . FEVER NO . FLU LIKE SYMPTOMS? NO . CPAP NO . BYPAP NO . ASTHMA NO . EMPHYSEMA NO . CHRONIC LUNG DISEASES NO . SHORTNESS OF BREATH ON EXERTION NO . DO YOU USE ANY TYPE OF TOBACCO (SMOKE, SMOKELESS, CHEW)? YES - NICOTINE PATCH AND GUM . COUGH NO . SNORING NO . INTEGUMENTARY: DO YOU HAVE ANY RASHES OR OPEN SORES? NO . ALLERGIC/IMMUNO: ARE YOU ALLERGIC TO IV DYE? NO . ANY NEW ALLERGIES? NO . PSYCHIATRIC: DO YOU HAVE THOUGHTS OF HURTING YOURSELF OR SOMEONE ELSE? NO . ARE YOU ABUSED, NEGLECTED, OR IN AN UNSAFE ENVIRONMENT? NO . ENDOCRINOLOGY: ARE YOU DIABETIC? NO . THYROID DISORDER HYPOTHYROID . OTHER: DO YOU NEED ANY PRESCRIPTIONS? NO . IF YES, PLEASE LIST: ____ . ANY NEW PROBLEMS WITH YOUR MEDICATIONS? NO . WHEN DID YOU LAST EAT? ____ . WHEN DID YOU LAST DRINK? ____ . WHAT DID YOU LAST DRINK? ____ . NAME OF PERSON DRIVING YOU HOME? ____ . DO YOU HAVE ANY OTHER QUESTIONS OR CONCERNS NO . VITAL SIGNS WT 247.0 LBS, HT 67 IN, BMI 38.68 INDEX, BP 135/73 MM HG, HR 74 /MIN, RR 18 /MIN, TEMP 96.6 F, OXYGEN SAT % 98%, NA INITIALS AW 1304, REVIEWED BY: MALIA. EXAMINATION GENERAL EXAMINATION: PATIENT IS ALERT O X 3 AND COOPERATIVE. LUNGS CLEAR, TO AUSCULTATION. HEART: NO MURMURS OR GALLOPS; FACIAL CRANIAL NERVES ARE GROSSLY NORMAL. GOOD SYMMETRY OF FACIAL MUSCLE MOVEMENT. NORMAL VISUAL TOBAR. ANTALGIC WALK. PATIENT IS LIMPING FROM THE LEFT LEG, WHICH IS WEAKER AT EXTENSION AND FLEXION. STRAIGHT LEG RAISE OF THE LEFT LEG IS POSITIVE AT 60 DEGREES FOR RADICULOPATHY. MRI OF THE LUMBAR SPINE DONE ON 10/04/2019 SHOWS LEFT DISC PROTRUSION AT L4-L5 AND BULGING DISC AT L5-S1. TENDERNESS AND PRESENCE OF BANDS OF TISSUE AND TRIGGER POINTS WITH RESTRICTION OF MOVEMENT OF THE NECK. ASSESSMENTS MYALGIA, OTHER SITE - M79.18 (PRIMARY) INTERVERTEBRAL DISC DISORDERS WITH RADICULOPATHY, LUMBAR REGION - M51.16 NECK PAIN - M54.2 TREATMENT MYALGIA, OTHER SITE CLINICAL NOTES: WE DISCUSSED SEVERAL ISSUES WITH MS. SIMONS'S PAIN MANAGEMENT CASE. , DUE TO THE TRIGGER POINTS, BANDS OF TISSUE, AND RESTRICTION OF MOVEMENT, I WOULD LIKE TO MOVE FORWARD WITH A BILATERAL NECK TRIGGER POINT INJECTION AT THIS TIME. WE DISCUSSED THE BENEFITS, RISKS, AND ALTERNATIVES OF THE INJECTION AND THE PATIENT WOULD LIKE TO PROCEED. I AM LOOKING FOR LONG LASTING PAIN RELIEF FROM THIS INJECTION FOR THE PATIENT. DEPENDING ON THE TRIGGER POINT INJECTION'S RESULTS, I MAY CONSIDER PERFORMING A LUMBAR EPIDURAL STEROID INJECTION IN THE FUTURE. INSTRUCTIONS WERE GIVEN, QUESTIONS WERE ANSWERED, PATIENT REPORTS UNDERSTANDING AND AGREES WITH THE PLAN. I, DIANA GALLARDO, DOCUMENTED THE ABOVE INFORMATION ACTING A SCRIBE FOR DR. JESSICA. I HAVE REVIEWED THE ABOVE DOCUMENT, WRITTEN BY DIANA MONTANOIBWesly AND I VERIFY THAT IT IS ACCURATE. DEAR VANESSA SILVA M.D.: THANK YOU FOR YOUR KIND REFERRAL OF LORNA SIMONS. IF YOU WANT TO DISCUSS HER CASE WITH ME PLEASE CALL ME AT THE PAIN CENTER AT [phone]. SINCERELY, ARAM JESSICA MD PAIN MEDICINE . PROCEDURE CODES FA211 ESTABILISHED PATIENT [facility] FACILITY CHARGE G8427 CURRENT MEDS W/DOSAGES DOCUMENTED G8730 PAIN ASSESS POS TOOL F/U PLAN DOC DISPOSITION & COMMUNICATION FOLLOW UP 3 WEEKS (REASON: ERVIN NECK TPI) ELECTRONICALLY SIGNED BY ARAM JESSICA MD, MD ON 11/25/2019 AT 03:45 PM EDT DISCLAIMER : THIS IS A VISIT SUMMARY EXTRACTED FROM THE [employer] CHART. IT IS NOT A COPY OF THE [employer] PROGRESS NOTE. [employer]
== END ==
LOC: M PAIN 13:00
PROVIDERS: ATTEND Anesthesiology
DX: M79.18 Myalgia, other site (principal); M51.16 Intervertebral disc disorders with radiculopathy, lumbar region; M54.2 Cervicalgia; Z79.899 Other long term (current) drug therapy; Z87.891 Personal history of nicotine dependence

== ENCOUNTER → 2019-11-25 | Outpatient (CLI) | payer MEDICAID ==
[2019-11-25 13:05] LABS: FREE T4 1.26 NG/DL (0.76-1.46); THYROID STIMULATING HORMONE 0.026 uIU/ML (0.358-3.740)
[2019-11-26 08:28] LABS: THYROID PEROXIDASE ANTIBODY > 1300.0 U/ML (<60.0)
== END ==
LOC: M PLALAB 09:14
PROVIDERS: ATTEND Nurse Practitioner Family
DX: E03.9 Hypothyroidism, unspecified (principal)

== ENCOUNTER 2019-12-15 13:45 | Outpatient (RCR) | payer OTHER, MEDICAID | END 2019-12-16 | LOC: M PT 13:45 | PROVIDERS: ATTEND Internal Medicine | DX: M76.32 Iliotibial band syndrome, left leg (principal) ==